=== PATIENT | female | born 1950 | race American Indian/Alaskan Native ===

== ENCOUNTER 2019-06-20 14:28 | Outpatient (CLI) | payer MEDICARE ==
--- NOTE | 2019-06-20 16:30 | Magnetic Resonance Report ---
MRI RIGHT SHOULDER WITHOUT CONTRAST INDICATION: M25.511)Pain in Right Shoulder.. COMPARISON: None available. TECHNIQUE: Multisequence, multiplanar images were obtained. FINDINGS: ACROMIOCLAVICULAR JOINT: Moderate degenerative arthrosis with fluid seen in AC joint and ganglion cys t along superior aspect of AC joint measuring 1.3 cm ACROMION: Type I SUPRASPINATUS: Large full-thickness tear involving entire width of supraspinatus tendon with retracti on to glenohumeral joint and mild muscle atrophy INFRASPINATUS: Large full-thickness tear involving entire width of infraspinatus tendon with retracti on to glenohumeral joint and mild atrophy. SUBSCAPULARIS: Full-thickness tear involving entire width of subscapularis with retraction 5 mm media l to lesser tuberosity. BICEPS TENDON, LONG HEAD: Complete tear of biceps tendon with retraction below the intertubercular gr oove SUBACROMIAL/SUBDELTOID SPACE: Large amount of fluid and extensive tenosynovitis GLENOID LABRUM: Marked fraying and degenerative tear of glenoid labrum. ARTICULAR CARTILAGE: Moderate degenerative arthrosis of glenohumeral joint. JOINT SPACE AND CAPSULE: Large shoulder effusion and extensive synovitis within the axillary recess BONES: No significant bone marrow edema. No fracture. No osseous lesion. SUBCUTANEOUS SOFT TISSUES: No significant abnormality. ADDITIONAL FINDINGS: None. IMPRESSION: 1. Massive rotator cuff tear involving supraspinatus, infraspinatus, subscapularis and biceps tendons . 2. Moderate rotator cuff arthropathy of glenohumeral joint Signer Name: Basilio Merlos MD Signed: 06/20/2019 4:26 PM Workstation Name: [employer] [email or web address]
== END 2019-06-20 14:29 | disposition home or self-care (01) ==
LOC: MRI 14:28
PROVIDERS: ATTEND Orthopaedic Surgery
DX: M75.41 Impingement syndrome of right shoulder (principal)

== ENCOUNTER 2019-10-05 15:59 | Outpatient (CLI) | payer MEDICARE ==
--- NOTE | 2019-10-05 17:41 | XRay Report ---
LUMBAR SPINE HISTORY: Lower extremity weakness for 4 to 5 months, possible spinal stenosis COMPARISON: None. TECHNIQUE: 5 view(s) of the lumbar spine obtained. FINDINGS: Vertebrae: Normal alignment. No displaced fracture or significant abnormality. Disc Spaces:There is moderate disc space narrowing at L4-5 and L5-S1 with associated anterolateral os teophyte formation. Remaining disc spaces are relatively preserved. Facet Joints:Moderate facet hypertrophy in the lower lumbar spine. Additional findings: A subcentimeter sclerotic focus projecting in the region of the left iliac bone is nonspecific but may reflect a small bone island. IMPRESSION: 1. Moderate degenerative disc and facet disease in the lower lumbar spine. Signer Name: Andreea Ferguson MD Signed: 10/05/2019 5:37 PM Workstation Name: [id number]
== END 2019-10-05 16:00 | disposition home or self-care (01) ==
LOC: XRAY 15:59
PROVIDERS: ATTEND Orthopaedic Surgery
DX: M47.816 Spondylosis without myelopathy or radiculopathy, lumbar region (principal); M48.07 Spinal stenosis, lumbosacral region; M25.78 Osteophyte, vertebrae; M25.511 Pain in right shoulder
CPT/HCPCS: 72110

== ENCOUNTER 2019-10-29 13:21 | Outpatient (CLI) | payer MEDICARE ==
--- NOTE | 2019-10-29 17:39 | Magnetic Resonance Report ---
MR lumbar spine wo con INDICATION / CLINICAL INFORMATION: 69 years Female; LOW BACK PAIN. TECHNIQUE: Multisequence, multiplanar images of the lumbar spine were obtained. COMPARISON: None available. FINDINGS: ALIGNMENT: Grade 1 anterolisthesis of L5 seen with respect to S1, felt to be degenerative in origin. VERTEBRAE:Heterogeneous marrow signal seen, which may relate to chronic anemia, given the patient's a ge. Minimal Modic type I endplate changes seen at L4-5, which may be a source of back pain. Similarl y, there is edema along the superior endplate at T11 posteriorly, which may be on degenerative basis. VISUALIZED SPINAL CORD: No significant abnormality. Conus is grossly normal in appearance. INTERVERTEBRAL DISCS: Multilevel disc desiccation noted. There is disc space narrowing at L3-4, L4-5, L5-S1, as well. [id number]-DT-[id number] ANALYSIS: L1-2: Mild disc bulge. No significant sequela. L2-3: Mild to moderate disc bulge and mild facet hypertrophy. Mild canal narrowing. Broad-based [place] inal/extra foraminal disc protrusion is seen in the left which encroaches upon the left L2 nerve. Bor derline flattening suggested. Similar findings to lesser degree noted on the right. L3-4: Mild/moderate disc bulge and mild facet hypertrophy. Mild canal narrowing. Moderate to marked f oraminal narrowing is seen on the left from disc disease and facet hypertrophy which encroaches upon and flattens the left L3 nerve. Findings appear to be on a chronic basis. Moderate foraminal narrowin g noted on the right. L4-5: Mild disc bulge and broad-based posterior central disc protrusion. Mild to moderate facet hyper trophy. Small left lateral recess disc extrusion seen which may encroach upon the left L5 nerve. No i mpingement seen. Moderate to marked foraminal narrowing on the right from disc disease and facet hype rtrophy which encroaches upon and flattens the right L4 nerve. Mild to moderate noted on the left wit hout impingement. L5-S1: Mild disc bulge and moderate facet hypertrophy. Moderate to marked foraminal narrowing is seen bilaterally from a combination of disc disease and facet hypertrophy. Findings are greater on the le ft. There is flattening the left L5 nerve and mild flattening of the right L5 nerve noted. PARASPINAL SOFT TISSUES: Mild paraspinous muscular atrophy noted. ADDITIONAL FINDINGS: Large, presumed simple cyst associated with the right kidney. Small simple cyst seen in the left kidney. Right adrenal gland is mildly prominent in size-adrenal hyperplasia might be consideration. Findings are not as prevalent on the left. Please correlate with any prior CT of the abdomen and pelvis, if av ailable. IMPRESSION: 1. Degenerative changes of the lumbar spine as described above. Findings at multiple levels could aff ect the exiting nerves. Please correlate with dermatomal distribution of patient's symptoms, if prese nt. 2. Prominent right adrenal gland as described above. Comparison with remote exam would be helpful, if available. Alternatively, MRI using adrenal protocol may be of benefit. Signer Name: Jordy Siddiqui MD, III Signed: 10/29/2019 5:34 PM Workstation Name: [id number]
== END 2019-10-29 13:22 | disposition home or self-care (01) ==
LOC: MRI 13:21
PROVIDERS: ATTEND Orthopaedic Surgery
DX: M47.816 Spondylosis without myelopathy or radiculopathy, lumbar region (principal); M51.26 Other intervertebral disc displacement, lumbar region
CPT/HCPCS: 72148